=== PATIENT | male | born 1980 | race American Indian/Alaskan Native ===

== ENCOUNTER 2019-05-27 07:31 | Emergency (ER) | payer SELFPAY ==
--- NOTE | 2019-05-27 08:18 | XRay Report ---
CHEST 2 VIEWS INDICATION / CLINICAL INFORMATION: hypertension. COMPARISON: None available. FINDINGS: SUPPORT DEVICES: None. HEART / MEDIASTINUM: No significant abnormality. LUNGS / PLEURA: No significant pulmonary or pleural abnormality. No pneumothorax. ADDITIONAL FINDINGS: No significant additional findings. IMPRESSION: 1. No acute findings. Signer Name: Broderick Sims MD Signed: 05/27/2019 8:13 AM Workstation Name: [id number]
[2019-05-27 08:19] LABS: Basophils # (Auto) 0.1 K/mm3 (0.0-0.1); Basophils % (Auto) 1.1 % (0.0-1.8); Eosinophils % (Auto) 0.3 % (0.0-4.3); Hematocrit 40.5 % (35.5-45.6); Hemoglobin 13.8 gm/dl (11.8-15.2); Lymphocytes # (Auto) 2.1 K/mm3 (1.2-5.4); Lymphocytes % (Auto) 27.3 % (13.4-35.0); Mean Corpuscular HGB Conc 34 % (32-34); Mean Corpuscular Volume 94 fl (84-94); Monocytes # (Auto) 0.5 K/mm3 (0.0-0.8); Monocytes % (Auto) 6.7 % (0.0-7.3); Platelet Count 512 K/mm3 (140-440); Red Blood Count 4.33 M/mm3 (3.65-5.03); Red Cell Distribution Width 14.2 % (13.2-15.2)
[2019-05-27 08:30] LABS: INR 0.98 (0.87-1.13)
[2019-05-27 08:31] LABS: Partial Thromboplastin Time 31.5 Sec. (24.2-36.6)
[2019-05-27 08:36] LABS: Creatine Kinase MB 1.7 ng/mL (0.0-4.0)
[2019-05-27 08:38] LABS: Alanine Aminotransferase 15 units/L (7-56); BUN/Creatinine Ratio 13; Bilirubin,Direct < 0.2 mg/dL (0-0.2); Blood Urea Nitrogen 12 mg/dL (9-20); Calcium 9.3 mg/dL (8.4-10.2); Hemolysis Index 8
[2019-05-27 10:36] LABS: Amphetamine Screen,Urine PRESUMPTIVE NEGATIVE; Benzodiazepines Screen,Urine PRESUMPTIVE NEGATIVE; Cocaine Screen,Urine PRESUMPTIVE NEGATIVE; Methadone Screen,Urine PRESUMPTIVE NEGATIVE; Opiate Screen,Urine PRESUMPTIVE NEGATIVE
[2019-05-27 11:02] LABS: Cannabinoid Screen,Urine PRESUMPTIVE POSITIVE
[2019-05-27] MEDS ORDERED: OXYMETAZOLINE 0.05% NASAL SPRAY NS ONE (12:43)
--- NOTE | 2019-05-27 13:14 | Emergency Department Report ---
ED ENT HPI - General Chief complaint: High BP Stated complaint: HBP/NOSE BLEED Time Seen by Provider: 05/27/19 12:36 Source: patient Mode of arrival: Ambulatory Limitations: No Limitations - History of Present Illness Initial comments: 38-year-old -[place] male patient with history of asthma presents with complaints of bilateral nosebleed and elevated blood pressure x yesterday. He denies any previous history of hypertension, however states that when his nose began to bleed suddenly yesterday he wanted to get his pressure checked. The patient states he went to [place] and his blood pressure was noted to be 170/105. He denies any headache, vision changes, chest pain, shortness of breath, dizziness, numbness/tingling/weakness in his limbs, confusion, or speech changes. He reports his nose began to bleed from the left nostril and only started to bleed from the right nostril once he plugged up his left nostril with tissue. He also denies any pain or trauma to his nose. MD complaint: epistaxis -: Sudden Severity scale (0 -10): 0 - Related Data Previous Rx's Medication Instructions Recorded Last Taken Type Albuterol INH(or & Nicu Only) 2 puff IH QID PRN #8.5 gram 05/27/19 Unknown Rx [ProAir HFA Inhaler] Mupirocin [Bactroban 2% OINT] 1 applic TP TID 7 Days #1 tube 05/27/19 Unknown Rx amLODIPine 5 mg PO DAILY 20 Days #20 tab 05/27/19 Unknown Rx Allergies Allergy/AdvReac Type Severity Reaction Status Date / Time shellfish derived Allergy Swelling Verified 05/27/19 07:34 ED Dental HPI - General Chief complaint: High BP Stated complaint: HBP/NOSE BLEED Time Seen by Provider: 05/27/19 12:36 Source: patient Mode of arrival: Ambulatory Limitations: No Limitations - Related Data Previous Rx's Medication Instructions Recorded Last Taken Type Albuterol INH(or & Nicu Only) 2 puff IH QID PRN #8.5 gram 05/27/19 Unknown Rx [ProAir HFA Inhaler] Mupirocin [Bactroban 2% OINT] 1 applic TP TID 7 Days #1 tube 05/27/19 Unknown Rx amLODIPine 5 mg PO DAILY 20 Days #20 tab 05/27/19 Unknown Rx Allergies Allergy/AdvReac Type Severity Reaction Status Date / Time shellfish derived Allergy Swelling Verified 05/27/19 07:34 ED Review of Systems ROS: Stated complaint: HBP/NOSE BLEED Other details as noted in HPI Comment: All other systems reviewed and negative ENT: epistaxis ED Past Medical Hx - Past Medical History Previous Medical History?: Yes Hx Asthma: Yes - Surgical History Past Surgical History?: No - Social History Smoking Status: Current Some Day Smoker Substance Use Type: Alcohol, Other - Medications Home Medications: Home Medications Medication Instructions Recorded Confirmed Last Taken Type Albuterol INH(or & Nicu Only) 2 puff IH QID PRN #8.5 gram 05/27/19 Unknown Rx [ProAir HFA Inhaler] Mupirocin [Bactroban 2% OINT] 1 applic TP TID 7 Days #1 tube 05/27/19 Unknown Rx amLODIPine 5 mg PO DAILY 20 Days #20 tab 05/27/19 Unknown Rx ED Physical Exam - General Limitations: No Limitations General appearance: alert, in no apparent distress - Head Head exam: Present: atraumatic, normocephalic - Eye Eye exam: Present: normal appearance - ENT ENT exam: Present: other (No bleeding noted from right nare. Mild anterior bleeding noted in left nare. No tenderness to palpation over nose or sinuses.) - Neck Neck exam: Present: normal inspection, full ROM - Respiratory Respiratory exam: Present: normal lung sounds bilaterally. Absent: respiratory distress - Cardiovascular Cardiovascular Exam: Present: regular rate, normal rhythm. Absent: systolic murmur, diastolic murmur, rubs, gallop - Extremities Exam Extremities exam: Present: normal inspection - Neurological Exam Neurological exam: Present: alert, oriented X3 - Psychiatric Psychiatric exam: Present: normal affect, normal mood - Skin Skin exam: Present: warm, dry, intact, normal color. Absent: rash, cyanosis, diaphoretic ED Course Vital Signs 05/27/19 05/27/19 05/27/19 07:34 13:38 14:48 Temperature 97.8 F Pulse Rate 106 H 84 82 Respiratory 16 Rate Blood Pressure 168/140 174/117 Blood Pressure 172/106 [Left] O2 Sat by Pulse 100 Oximetry 05/27/19 16:54 Temperature Pulse Rate 80 Respiratory 16 Rate Blood Pressure Blood Pressure 144/95 [Left] O2 Sat by Pulse 100 Oximetry ED Medical Decision Making - Lab Data Result diagrams: 05/27/19 07:50 05/27/19 07:50 Lab Results 05/27/19 05/27/19 05/27/19 Range/Units 07:50 07:50 07:50 WBC 7.8 (4.5-11.0) K/mm3 RBC 4.33 (3.65-5.03) M/mm3 Hgb 13.8 (11.8-15.2) gm/dl Hct 40.5 (35.5-45.6) % MCV 94 (84-94) fl MCH 32 (28-32) pg MCHC 34 (32-34) % RDW 14.2 (13.2-15.2) % Plt Count 512 H (140-440) K/mm3 Lymph % (Auto) 27.3 (13.4-35.0) % [place] % (Auto) 6.7 (0.0-7.3) % Eos % (Auto) 0.3 (0.0-4.3) % Baso % (Auto) 1.1 (0.0-1.8) % Lymph # 2.1 (1.2-5.4) K/mm3 Wy[place] # 0.5 (0.0-0.8) K/mm3 Eos # 0.0 (0.0-0.4) K/mm3 Baso # 0.1 (0.0-0.1) K/mm3 Seg Neutrophils % 64.6 (40.0-70.0) % Seg Neutrophils # 5.1 (1.8-7.7) K/mm3 PT 13.1 (12.2-14.9) Sec. INR 0.98 (0.87-1.13) APTT 31.5 (24.2-36.6) Sec. Sodium 138 (137-145) mmol/L Potassium 4.1 (3.6-5.0) mmol/L Chloride 100.6 (98-107) mmol/L Carbon Dioxide 24 (22-30) mmol/L Anion Gap 18 mmol/L BUN 12 (9-20) mg/dL Creatinine 0.9 (0.8-1.5) mg/dL Estimated GFR > 60 ml/min BUN/Creatinine Ratio 13 % Glucose 136 H (75-100) mg/dL Calcium 9.3 (8.4-10.2) mg/dL Total Bilirubin 0.30 (0.1-1.2) mg/dL Direct Bilirubin < 0.2 (0-0.2) mg/dL Indirect Bilirubin 0.1 mg/dL AST 21 (5-40) units/L ALT 15 (7-56) units/L Alkaline Phosphatase 69 (35-129) units/L Total Creatine Kinase 400 H (55-170) units/L CK-MB (CK-2) 1.7 (0.0-4.0) ng/mL CK-MB (CK-2) Rel Index 0.4 (0-4) Troponin T < 0.010 (0.00-0.029) ng/mL NT-Pro-B Natriuret Pep 15.33 (0-450) pg/mL Total Protein 8.1 (6.3-8.2) g/dL Albumin 4.0 (3.9-5) g/dL Albumin/Globulin Ratio 1.0 % Urine Opiates Screen Urine Methadone Screen Ur Barbiturates Screen Ur Phencyclidine Scrn Ur Amphetamines Screen U Benzodiazepines Scrn Urine Cocaine Screen U Marijuana (THC) Screen Drugs of Abuse Note 05/27/19 Range/Units 10:10 WBC (4.5-11.0) K/mm3 RBC (3.65-5.03) M/mm3 Hgb (11.8-15.2) gm/dl Hct (35.5-45.6) % MCV (84-94) fl MCH (28-32) pg MCHC (32-34) % RDW (13.2-15.2) % Plt Count (140-440) K/mm3 Lymph % (Auto) (13.4-35.0) % [place] % (Auto) (0.0-7.3) % Eos % (Auto) (0.0-4.3) % Baso % (Auto) (0.0-1.8) % Lymph # (1.2-5.4) K/mm3 [place] # (0.0-0.8) K/mm3 Eos # (0.0-0.4) K/mm3 Baso # (0.0-0.1) K/mm3 Seg Neutrophils % (40.0-70.0) % Seg Neutrophils # (1.8-7.7) K/mm3 PT (12.2-14.9) Sec. INR (0.87-1.13) APTT (24.2-36.6) Sec. Sodium (137-145) mmol/L Potassium (3.6-5.0) mmol/L Chloride (98-107) mmol/L Carbon Dioxide (22-30) mmol/L Anion Gap mmol/L BUN (9-20) mg/dL Creatinine (0.8-1.5) mg/dL Estimated GFR ml/min BUN/Creatinine Ratio % Glucose (75-100) mg/dL Calcium (8.4-10.2) mg/dL Total Bilirubin (0.1-1.2) mg/dL Direct Bilirubin (0-0.2) mg/dL Indirect Bilirubin mg/dL AST (5-40) units/L ALT (7-56) units/L Alkaline Phosphatase (35-129) units/L Total Creatine Kinase (55-170) units/L CK-MB (CK-2) (0.0-4.0) ng/mL CK-MB (CK-2) Rel Index (0-4) Troponin T (0.00-0.029) ng/mL NT-Pro-B Natriuret Pep (0-450) pg/mL Total Protein (6.3-8.2) g/dL Albumin (3.9-5) g/dL Albumin/Globulin Ratio % Urine Opiates Screen Presumptive negative Urine Methadone Screen Presumptive negative Ur Barbiturates Screen Presumptive negative Ur Phencyclidine Scrn Presumptive negative Ur Amphetamines Screen Presumptive negative U Benzodiazepines Scrn Presumptive negative Urine Cocaine Screen Presumptive negative U Marijuana (THC) Screen Presumptive positive Drugs of Abuse Note Disclamer - Medical Decision Making 38-year-old -[place] male patient with history of asthma presents with complaints of bilateral nosebleed and elevated blood pressure x yesterday. Patient denies previous history of hypertension. Blood pressure noted to be 178/117 on arrival. Patient denies any red flag symptoms. CBC and CMP are normal. After 20 mg of IV labetalol, blood pressure now 149/89. Surgicel was inserted into the left nare and left in place for 1 hour. No further bleeding noted during patient stay here in the ED. Pt is nontoxic appearing and stable for d/c home. Will start pt on amlodipine for BP. Mupirocin given for bleeding in left nare. Recommend f/u with PCP-pt provided with info for Dr. Hess. Also recommend follow up with ENT. Discussed avoidance of nose blowing and strict return precautions in great detail with patient who verbalizes understanding. Critical care attestation.: If time is entered above; I have spent that time in minutes in the direct care of this critically ill patient, excluding procedure time. ED Disposition Clinical Impression: Elevated blood pressure reading in office with diagnosis of hypertension, Anterior epistaxis Disposition: TO HOME OR SELFCARE Is pt being admited?: No Condition: Stable Instructions: Hypertension (ED), Epistaxis (ED) Prescriptions: amLODIPine 5 mg PO DAILY 20 Days #20 tab Mupirocin [Bactroban 2% OINT] 1 applic TP TID 7 Days #1 tube Albuterol INH(or & Nicu Only) [ProAir HFA Inhaler] 2 puff IH QID PRN #8.5 gram PRN Reason: Shortness Of Breath Referrals: VICTORIA HESS MD [Staff Physician] - 2-3 Days
[2019-05-27] MEDS ORDERED: hydrALAZINE 25 MG TAB PO ONE (16:23)
[2019-05-27 16:55] VITALS: BP 144/95
== END 2019-05-27 18:00 | disposition home or self-care (01) ==
LOC: ED 07:31
DX: I10 Essential (primary) hypertension (principal); R04.0 Epistaxis; J45.909 Unspecified asthma, uncomplicated; F17.200 Nicotine dependence, unspecified, uncomplicated
CPT/HCPCS: 36415; 71046; 80048; 80076; 80307; 82550; 82553; 83880; 84484; 85025; 85610; 85730; 96374; 96376; 99284